=== PATIENT | male | born 1960 | race Caucasian/White ===

== ENCOUNTER 2017-05-23 07:00 | Day surgery (SDC) | payer OTHER ==
[~2017-05-23] VITALS: Ht 182.9 cm; Wt 129.7 kg
[~2017-05-23 07:00] MED LIST: AMARYL4 MG PO; DICLOFENAC SODI75 MG PO; GLUCOPHAGE1000 MG PO; HUMALOG100 UNIT/2 SUB-Q; JARDIANCE25 MG PO; LANTUS100 UNITS/ SUB-Q; LISINOPRIL40 MG PO; LOFIBRA160 MG PO; NORCO 10-325 T1 EACH PO; NORCO 5-325 TA1 EACH PO; SERTRALINE HCL50 MG PO; VICTOZA 2-0.6 MG/0.1 SUB-Q; VITAMIN B-50 C0.4 MG PO
--- NOTE | 2017-05-23 07:32 | NUR ---
PTS BLOOD SURGAR FOUND TO BE 329. PT STATES "i NORMALLY RUN THAT HIGH IN THE MORNING." ADVERTISEMENT DISTRIBUTOR INFORMED. PT DENIES DIZZINESS, OR OTHER S/S OF ELEVATED BLOOD SURGAR.
--- NOTE | 2017-05-23 07:39 | NUR ---
BAND SCROLL SAW OPERATOR STATES TO "LET HIS BLOOD SURGAR RIDE RIGHT NOW" NO ACTION NEEDED AT THIS TIME.
--- NOTE | 2017-05-23 07:39 | NUR ---
PT ARRIVED TO DAY SURGERY UNIT WITH WOUND ON RIGHT LOVING. WOUND APPEARS SCABED OVER AND DOES IS NOT DRAINING OR INFLAMED. PT REPORTS NO TROUBLE WITH HEALING. INFORMED.
--- NOTE | 2017-05-23 08:55 | NUR ---
PROMPT CARE RN AT BEDSIDE TO DO BLOCK. PROMPT CARE RN GAVE FENTANYL AND VERSED (SEE PROMPT CARE RN RECORD). PT PLACED ON 6L O2 BY MASK.
--- NOTE | 2017-05-23 09:06 | NUR ---
WORKFORCE DEVELOPMENT SPECIALIST FINISHED WITH PERNELL, AT BEDSIDE. BED RAILS UP, CALL LIGHT WITHIN REACH.
--- NOTE | 2017-05-23 10:25 | NUR ---
05/23/17 Jj5 Pamela Garcia 1017-PATIENT ARRIVED TO PACU ON 10L MASK 02 SAT 100% PATIENT NONAROUSABLE. LEFT ARM IN SLING 2 INCISION SITES CDI. ICE APPLIED. GLUCOSE 244 NO NEW ORDERS RECEIVED. 1023-PATIENT AROUSES TO VERBAL STIMULI DENIES PAIN OR NAUSEA. DROWSY WEANED TO 6L MASK O2 SAT 100% PATIENT ABLE TO WIGGLE FINGERS REPORTS A LITTLE NUMBNESS.
--- NOTE | 2017-05-23 11:16 | NUR ---
PT RETUREND FROM PACU. PAGED, HAS NOT RESPONDED TO PAGER YET. PT REPORTS 6/10 PAIN (SEE MAR FOR MEDICATION GIVEN). PT TOLERATING PO FLUIDS. PT DENIES NAUSEA. BED RAILS UP. CALL LIGHT WITHIN REACH.
[2017-05-23] MEDS ORDERED: NORCO 10-325 T1 EACH PO (11:37)
--- NOTE | 2017-05-23 12:08 | NUR ---
AT BEDSIDE. PT REPORTS IMPROVING PAIN NOW AT 09/03. PT MAINTAINING O2 ABOVE 92% ON ROOM AIR. BED RAILS UP. CALL LIGHT WITHIN REACH.
--- NOTE | 2017-05-23 13:19 | NUR ---
PT ALERT, ORIENTED AND SUPPORTED BY . THEY LIVE IN [place] AND CHOSE TO COME LAST NIGHT. HE SEEMS PREPARED, HAS HAD SAME SURGERY BEFORE. PLEASANT CONVERSATION, DECLINED PRAYER AT THIS TIME. WILL FOLLOW NEEDED
--- NOTE | 2017-05-24 10:11 | OR ---
[facility] [address] [place], [place] [address] Signed DATE OF OPERATION: 05/23/2017 SURGEON: Miriam Durán MD PREOPERATIVE DIAGNOSIS: Rotator cuff tear, left shoulder. POSTOPERATIVE DIAGNOSIS: Partial-thickness rotator cuff tear, supraspinatus, left shoulder. PROCEDURE: Shoulder arthroscopy with debridement of partial-thickness rotator cuff tear. ANESTHESIA: General. SPECIMENS AND COMPLICATIONS: There were no specimens or complications. TOURNIQUET: Tourniquet was not used. BLOOD LOSS: Minimal. WHAT WAS DONE: The patient was taken to the operating room. After anesthesia was induced and the airway supported, the patient was placed in a modified beach chair position, and prepped and draped in a routine sterile fashion. The bony topography about the shoulder was outlined with a skin marking pen and the arthroscope inserted into the shoulder through the standard posterior portal. Arthroscopy of the shoulder joint revealed an unremarkable glenoid and unremarkable humeral head. There was some fraying of the labrum, but the biceps tendon and the biceps anchor were intact. An anterior portal was created using a switching stick technique and a probe introduced. Again, there was some labral fraying particularly anteriorly and anterosuperiorly, but inspection on the underside of the rotator cuff did not reveal a full-thickness tear in the supraspinatus, the subscapularis, or the teres. We removed the scope from the shoulder joint and removed the probe. We then redirected the scope into the subacromial space, where there was a moderate bursitis. A VAPR was then introduced through an auxiliary lateral portal and a subacromial bursectomy performed. There was some new osteophyte formation on the Electronically Signed By: MIRIAM DURÁN MD 05/24/17 1011 PATIENT NAME: MORALES CISNEROS OPERATIVE REPORT DATE OF : 56 PHYSICIAN: MIRIAM DURÁN MD REPORT #: [id number] REPORT IS CONFIDENTIAL AND NOT TO BE RELEASED WITHOUT AUTHORIZATION [facility] [address] [place], [place] [address] Signed anteromedial aspect of the acromion and a bur was introduced to remove this. We then able to rotate the shoulder through a fairly full range of motion and indeed there was some fraying of the supraspinatus, but no full-thickness tearing. We then introduced the VAPR device and gently debrided of the loose fragments of the supraspinatus tear. Subacromial space was then copiously irrigated and drained. The portals were closed and a sterile dressing applied. The patient was awakened to recovery room where arrived in stable condition. Counts were correct and antibiotic protocols were followed. Miriam Durán MD WFB/MODL /[id number] Electronically Signed By: MIRIAM DURÁN MD 05/24/17 1011 PATIENT NAME: MORALES CISNEROS OPERATIVE REPORT DATE OF : 56 PHYSICIAN: MIRIAM DURÁN MD REPORT #: [id number] REPORT IS CONFIDENTIAL AND NOT TO BE RELEASED WITHOUT AUTHORIZATION
== END 2017-05-23 13:25 | disposition home or self-care (01) ==
LOC: OPS 07:00 → DS 07:00 → OPS 08:45
PROVIDERS: Orthopaedic Surgery
PROC: 0RBK4ZZ Excision of Left Shoulder Joint, Percutaneous Endoscopic Approach (ICD-10-PCS; principal; 2017-05-23 08:45)
DX: S46.012A Strain of muscle(s) and tendon(s) of the rotator cuff of left shoulder, initial encounter (principal); I10 Essential (primary) hypertension; E78.5 Hyperlipidemia, unspecified; Z88.8 Allergy status to other drugs, medicaments and biological substances; Z79.84 Long term (current) use of oral hypoglycemic drugs; X58.XXXA Exposure to other specified factors, initial encounter
CPT/HCPCS: 01630; 64416; 76942; J0330; J0690; J1100; J1885; J2250; J2270; J2405; J2704; J2765; J3010; J7120

== ENCOUNTER 2021-05-04 08:12 | Day surgery (SDC) | payer OTHER ==
[~2021-05-04] VITALS: Ht 182.9 cm; Wt 113.1 kg
[2021-05-04] MEDS ORDERED: LIPITOR40 MG PO (08:33)
[2021-05-04] MEDS ORDERED: OZEMPIC0.25 MG/0. SUB-Q (08:35)
--- NOTE | 2021-05-04 10:42 | NUR ---
05/04/21 1042 Thea Méndez 1037 PATIENT ARRIVES TO PACU RESTING WITH EYES CLOSED. AWAKE OFF/ON, BUT VERY DROWSY. REPOSITIONS SELF TO BACK. RESP EVEN AND UNLABORED, OXYGEN OFF, ROOM AIR SATS >95% DENIES NEEDS.
--- NOTE | 2021-05-05 07:59 | OR ---
[facility] [address] [place], [place] [address] Signed DATE OF OPERATION: 05/04/2021 SURGEON: Ruthie Jacques MD PREOPERATIVE DIAGNOSES: 1. Mother of colon cancer, age 46. 2. Father had colon cancer, age 72. 3. Personal history of colonic polyps, age 46 (2006). 4. Diverticulosis. 5. External hemorrhoids and skin tags. POSTOPERATIVE DIAGNOSES: 1. [id number] pandiverticulosis. 2. A 4 mm polyp at 82 cm next. 3. A 4 mm polyp at 10 cm. 4. A 5 mm polyp at 18 cm (rectum). 5. Minimal internal hemorrhoids with skin tag x1. PROCEDURE: Colonoscopy with hot biopsy. ESTIMATED BLOOD LOSS: None. INDICATIONS: Michael is a 60-year-old diabetic gentleman, asked to see me for a followup colonoscopy. We know his mother had at age 46 from her colon cancer. His dad diagnosed with colon cancer, age 72. Michael underwent his initial colonoscopy back in 2006 at the age of 46. He had hyperplastic and serrated adenomatous polyps removed at that time. He also had diverticulosis. He returned at age 49 in 2010 and had hyperplastic polyps removed. He had external hemorrhoids and skin tags as well. He then returned in 2015 at the age of 55 with pandiverticulosis along with external hemorrhoids and skin tags. On all three occasions, he has done well with Versed and fentanyl. He said he has no lower GI complaints currently. He returns for followup colonoscopy. In the office, I had given him a pamphlet on colonoscopy. He recalled the nature of the test. He understands risks including, but not limited to gas bloating, crampy abdominal pain, bleeding, perforation requiring surgery, and missed diagnosis. He had to he recall of the need for IV conscious sedation. He had expressed understanding and wished to proceed. Electronically Signed By: RUTHIE JACQUES MD 05/05/21 0759 PATIENT NAME: MICHAEL CISNEROS OPERATIVE REPORT DATE OF : 56 REPORT #: [id number] PHYSICIAN: RUTHIE JACQUES MD PCP: SYLVIA RAGSDALE NP REPORT IS CONFIDENTIAL AND NOT TO BE RELEASED WITHOUT AUTHORIZATION [facility] [address] [place] [id number] Signed DESCRIPTION OF PROCEDURE: Michael was taken into our endoscopy suite and placed in the left lateral decubitus position. He was given a total of 6 mg of Versed and 100 mcg of fentanyl to cover the case. A digital rectal exam was performed and he had minimal external hemorrhoids. His prostate seems to be indurated and swollen consistent with his age. The adult colonoscope was introduced advanced all around into the cecum under direct visualization of camera without difficulty. His prep was quite good. The scope was then slowly withdrawn. We could easily see the appendiceal orifice and the ileocecal valve. The above-mentioned polyps were easily removed with the help of hot biopsy forceps. We did notice some diverticula in the right colon as well as the left colon. Upon retroflexion of scope, he does have minimal internal hemorrhoid tissue, we saw just a single internal anal skin tag. After this, the gas was suctioned out. The colonoscope removed. Michael tolerated the procedure quite well. RECOMMENDATIONS: I will see Michael back in my office in 7 to 14 days to review his results. I suspect he will stay on the 5-year rotation. Ruthie Jacques MD ALB/MODL /[id number] cc: MD Sylvia Pérez, Nurse Practitioner Patient Chart Copies: RUTHIE JACQUES MD ~ Electronically Signed By: RUTHIE JACQUES MD 05/05/21 0759 PATIENT NAME: MICHAEL CISNEROS OPERATIVE REPORT DATE OF : 56 REPORT #: [id number] PHYSICIAN: RUTHIE JACQUES MD PCP: SYLVIA RAGSDALE NP REPORT IS CONFIDENTIAL AND NOT TO BE RELEASED WITHOUT AUTHORIZATION
--- NOTE | 2021-05-05 15:30 | PATH ---
[facility] [address] [place], [place] [address] Signed SPECIMEN(S): A COLON POLYP AT 82 CM SPECIMEN(S): B COLON POLYP AT 10 CM SPECIMEN(S): C COLON POLYP AT 18 CM SPECIMEN SOURCE: A. COLON POLYP AT 82 CM B. COLON POLYP AT 10 CM C. COLON POLYP AT 18 CM CLINICAL HISTORY: Colonoscopy. Family history of colon CA, history of polyp. Dx: Polyps, diverticulitis, internal hemorrhoids. MICROSCOPIC DESCRIPTION: Histologic sections of all submitted blocks are examined by light microscopy. These findings, together with the gross examination, support the pathologic diagnosis. FINAL PATHOLOGIC DIAGNOSIS: A. Colon, 82 cm, polypectomy: - Tissue was sent for cell preparation. - An addendum report will follow. B. Colon, 10 cm, polypectomy: - Hyperplastic polyp. - There is no evidence of dysplasia or malignancy. C. Colon, 18 cm, polypectomy: - Tubular adenoma. - There is no evidence of high-grade dysplasia or malignancy. TWK:cml:C2NR GROSS DESCRIPTION: Three specimens are received in three containers, labeled "KH." A. The specimen, labeled "KH, 1," and designated on the requisition "colon polyp at 82 cm," is received in formalin and consists of one arango soft tissue fragment that measures 0.1 cm in greatest dimension. The specimen is forwarded to [facility] to be spun down for cell block preparation. No block is submitted at this time. B. The specimen, labeled "KH, 2," and designated on the requisition "colon polyp at 10 cm," is received in formalin and consists of one arango soft tissue fragment that measures 0.3 cm in greatest dimension. The specimen is entirely submitted in cassette (B1). C. The specimen, labeled "KH, 3," and designated on the requisition "colon PATIENT NAME: MORALES CISNEROS PATHOLOGY DATE OF : 56 REPORT #: [id number] PHYSICIAN: KG PATHOLOGY PCP: MAYELA RAGSDALE NP REPORT IS CONFIDENTIAL AND NOT TO BE RELEASED WITHOUT AUTHORIZATION [facility] [address] [place], [place] [address] Signed polyp at 18 cm," is received in formalin and consists of one arango soft tissue fragment that measures 0.3 cm in greatest dimension. The specimen is entirely submitted in cassette (C1). AT (under the direct supervision of a pathologist) The Gross Description was prepared using a voice recognition system. The report was reviewed for accuracy; however, sound-alike word errors, addition and/or deletions may occur. If there is any question about this report, please contact Client Services. PERFORMING LABORATORY: The technical component was performed by [employer], [address] [place] [id number] (Steam Hoist Operator: Gloria Piper MD; CLIA# [id number]). Professional interpretation was performed by [facility], [address] [address] (CLIA# [id number]). Diagnostician: Thaddeus Vasquez MD Pathologist Electronically Signed 05/05/2021 Copies: ~ PATIENT NAME: MORALES CISNEROS PATHOLOGY DATE OF : 56 REPORT #: [id number] PHYSICIAN: KG PATHOLOGY PCP: MAYELA RAGSDALE NP REPORT IS CONFIDENTIAL AND NOT TO BE RELEASED WITHOUT AUTHORIZATION
== END 2021-05-04 11:10 | disposition home or self-care (01) ==
LOC: OPS 08:12 → DS 08:12 → DSVR 08:15 → OPS 08:15 → DS 09:45 → OPS 09:45
PROVIDERS: ATTEND Colon & Rectal Surgery
PROC: 0DBE8ZX Excision of Large Intestine, Via Natural or Artificial Opening Endoscopic, Diagnostic (ICD-10-PCS; principal; 2021-05-04 09:45)
DX: Z12.11 Encounter for screening for malignant neoplasm of colon (principal); D12.6 Benign neoplasm of colon, unspecified; Z86.010 Personal history of colon polyps; Z80.0 Family history of malignant neoplasm of digestive organs; K57.30 Diverticulosis of large intestine without perforation or abscess without bleeding; K64.8 Other hemorrhoids; K64.4 Residual hemorrhoidal skin tags; E78.5 Hyperlipidemia, unspecified; E11.9 Type 2 diabetes mellitus without complications; I10 Essential (primary) hypertension; G47.33 Obstructive sleep apnea (adult) (pediatric); M19.90 Unspecified osteoarthritis, unspecified site; Z98.1 Arthrodesis status; Z87.891 Personal history of nicotine dependence; Z88.8 Allergy status to other drugs, medicaments and biological substances; Z79.4 Long term (current) use of insulin
CPT/HCPCS: 99153; G0500; J2250; J3010; J7121

== ENCOUNTER 2021-07-17 05:45 | Day surgery (SDC) | payer OTHER ==
--- NOTE | 2021-07-11 11:49 | NUR ---
DOS: 07-17-[address] MCGRAW AND MAYELA RAGSDALE OFFICES. LEFT MESSAGE WITH STAFF REGARDING LOW K+3.2. EXPLAINED THAT IT NEEDS REPLACED BEFORE SURGERY.
[~2021-07-17] VITALS: Ht 182.9 cm; Wt 111.4 kg
[~2021-07-17 05:45] MED LIST changes: +FLOMAX0.4 MG PO; -GLUCOPHAGE1000 MG PO; +LIPITOR40 MG PO; +METFORMIN HCL1000 MG PO; +OMEGA 3 1,0001 EACH PO; +OZEMPIC0.25 MG/0. SUB-Q; +TOUJEO MAX300 UNIT/1 SUB-Q
--- NOTE | 2021-07-17 09:43 | NUR ---
07/17/21 0943 Sanna Agee 0926- PT ARRIVES TO PACU NONAROUSABLE TO NOXIOUS STIMULI. RESP EVEN AND UNLABORED. OXYGEN SAT HIGH 90'S ON 6L VIA MASK. PT'S FERNANDEZ DRAINING LIGHT PINK TINGED URINE WITH CBI INFUSING. 0931- PT HAS SOME RED TINGED GEL DRAINING OUT OF HIS PENIS. DR. MCGRAW AWARE. FERNANDEZ SECUREMENT DEVICE PLACED TO PT'S RIGHT LEG. 0934- BLOOD SUGAR 194. 0939- OXYGEN TITRATED OFF.
--- NOTE | 2021-07-17 10:05 | NUR ---
Pt arrives to MS floor from PACU. He is drowsy but oriented and awakens to voice, answers all questions, Tennie at bedside and engaged in care. Report received from Nataliia Melo RN. Pt on CPOX, 93% on RA, home CPAP brought in but not utilized. Urine light pink to cranberry in color with no clots noted. CBL irrigating and draining WNL. Pt reports no pain but does feel "pressure like he has to have a BM" will monitor. IVF infusing per order. IV WNL. Pt denies needs.
--- NOTE | 2021-07-17 10:50 | NUR ---
Full assessment and history complete. Pt resting in bed, denies pain or needs. at bedside. CBI irrigating WNL, urine light pink. No clots. Pt is oriented to room/unit and call light system and uses appropriately
--- NOTE | 2021-07-17 11:23 | NUR ---
PT ASLEEP IN BED WITH FAMILY AT BEDSIDE. NO FURTHER NEEDS AT THIS TIME.
[2021-07-17] MEDS ORDERED: OXYCODONE HCL5 MG PO (11:29)
[2021-07-17] MEDS ORDERED: LEVOFLOXACIN500 MG PO (11:32)
--- NOTE | 2021-07-17 11:35 | OR ---
[facility] [address] [place], [place] [address] Signed DATE OF OPERATION: 07/17/2021 SURGEON: Sho Mcgraw MD PREOPERATIVE DIAGNOSES: 1. Bilobar benign prostatic hyperplasia with lower urinary tract symptoms. 2. Elevated bladder neck. POSTOPERATIVE DIAGNOSES: 1. Bilobar benign prostatic hyperplasia with lower urinary tract symptoms. 2. Elevated bladder neck. NAMES OF PROCEDURES: 1. Diagnostic cystoscopy. 2. Urethral dilation using Juan Carlos sounds. 3. Transurethral resection of the prostate. ANESTHESIA: General. ESTIMATED BLOOD LOSS: 50 mL. COMPLICATIONS: None. SPECIMENS: Prostate chips sent to pathology for evaluation. DRAINS: A 22-Dominican three-way Tran catheter, connected to continuous bladder irrigation. INDICATIONS FOR PROCEDURE: Mr. Cisneros is a very pleasant 60-year-old gentleman, who is well-known to me with a history of BPH with lower urinary tract symptoms. After being on Flomax twice a day for a few years, he elected to undergo diagnostic cystoscopy for additional evaluation of his urinary symptoms. At that time, his urinary symptoms included weak force of stream and urinary hesitancy. He underwent a diagnostic cystoscopy, which revealed bilobar benign prostatic hyperplasia, along with an elevated bladder neck. After discussion of the risks and benefits of transurethral resection of the prostate, the patient elected Electronically Signed By: SHO MCGRAW MD 07/17/21 1135 PATIENT NAME: MORALES CISNEROS OPERATIVE REPORT DATE OF : 56 REPORT #: [id number] PHYSICIAN: SHO MCGRAW MD PCP: MAYELA RAGSDALE NP REPORT IS CONFIDENTIAL AND NOT TO BE RELEASED WITHOUT AUTHORIZATION [facility] [address] [place], [place] [address] Signed to undergo the aforementioned procedure. He presents today to undergo surgical intervention. OPERATIVE FINDINGS: 1. On cystoscopy, there was no evidence of any suspicious masses, lesions, or stones. Bilateral ureteral orifices are in their normal anatomic location. There is grade 2-3 bladder wall trabeculation noted. 2. Digital rectal examination was performed which revealed a 50 g gland that is soft, smooth and symmetric with no focal nodules. 3. The patient's urethral meatus was dilated using Richelle sounds from 18-Dominican to 30-Dominican without difficulty. 4. The patient's prostatic urethra was resected using a bipolar 24-Dominican loop, the entire bladder neck was resected, both anterior and posterior along with the lateral lobes of the prostate. The resection was performed down to the level of the verumontanum on all sides. At the end the procedure, bipolar button was used for additional resection and also to achieve and maintain adequate hemostasis. 5. At the end of the procedure, a 22-Dominican three-way Tran catheter was inserted into the patient's bladder and connected to continuous bladder irrigation. DESCRIPTION OF PROCEDURE: After informed consent was obtained, the patient was taken back to the operating room. He was transferred from the [facility] to the operating room table, where general anesthesia was induced. He was placed in the dorsal lithotomy position and his genitalia were prepped and draped in a standard sterile fashion. Using a 30-degree lens on a 22.5-Dominican introducer, rigid cystoscope was inserted through his urethra and into his bladder under direct visualization. Panendoscopic views of the bladder were then obtained. Please see the above findings. The cystoscope was then removed. The patient's urethral meatus was then dilated using Richelle sounds from 18-Dominican to 30-Dominican without incident. I then inserted a 26-Dominican continuous flow sheath using a visual obturator. The visual obturator was then switched out for a resectoscope with a 24-Dominican bipolar loop. I 1st resected the patient's elevated bladder neck both anteriorly and posteriorly. I then turned my attention to the left lateral lobe of the prostate, which was resected down to the level of the capsule. The right lateral lobe of the prostate was also dissected down to the level of the capsule. Prior to resection, I did evaluate the ureteral orifices and noted that they were not near the bladder neck. The resection was taken down to the level of just proximal to the verumontanum to avoid any iatrogenic injuries to the external sphincter. The patient's bladder was then irrigated of all prostate chips, which were then sent to the lab in a specimen cup. After continuing resection with the bipolar loop, this was ultimately switched out for a bipolar button and I cleaned out the newly-created prostatic fossa with the button. I also used the button to achieve additional hemostasis in the prostatic urethra. By the end the procedure, the patient had a very nice open and wide Electronically Signed By: SHO MCGRAW MD 07/17/21 1135 PATIENT NAME: MORALES CISNEROS OPERATIVE REPORT DATE OF : 56 REPORT #: [id number] PHYSICIAN: SHO MCGRAW MD PCP: MAYELA RAGSDALE NP REPORT IS CONFIDENTIAL AND NOT TO BE RELEASED WITHOUT AUTHORIZATION [address] [address] Signed channel and there was no active hemorrhage from any of the vessels in the area. I irrigated the remainder of the prostate chips from the patient's bladder and was then finished with the resection portion of the procedure. I inserted a Sensor wire through the indwelling sheath and into the patient's bladder. The 26-Dominican sheath was then removed fully intact, leaving the wire behind. Over the wire, I passed a 22-Dominican three-way Tran catheter into the patient's bladder and instilled 30 mL into the Tran balloon. Once in place, I manually irrigated the catheter to ensure placement. A digital rectal examination was then performed. Please see the above findings. The catheter was then connected to continuous bladder irrigation, and the procedure was terminated. The patient tolerated the procedure well without any complication. He will now be transferred to the postanesthesia care unit in stable condition. DISPOSITION: I discussed the details of today's procedure with the patient's and answered all of her questions. He will now be transferred to the medical-surgical floor where his continuous bladder irrigation will slowly be weaned to off, keeping the urine clear to light pink in color. His diabetic diet will be restarted and he will be given a sliding scale for management of his blood sugars. He will also be given pain control and antiemetics as needed. The plan is for him to be discharged to home tomorrow morning once he is off his CBI. He will see the Urology nurse in clinic this July 20 for a voiding trial. MD WES Vasquez/[place] /[id number] Copies: ~ Electronically Signed By: SHO MCGRAW MD 07/17/21 1135 PATIENT NAME: MORALES CISNEROS OPERATIVE REPORT DATE OF : 56 REPORT #: [id number] PHYSICIAN: SHO MCGRAW MD PCP: MAYELA RAGSDALE NP REPORT IS CONFIDENTIAL AND NOT TO BE RELEASED WITHOUT AUTHORIZATION
--- NOTE | 2021-07-17 13:39 | NUR ---
PATIENT IN BED RESTING AT THIS TIME. PATIENT COMPLAINS OF HEADHACHE BUT SAID HE DOES NOT WANT ANY MEDICATION FOR IT AT THIS TIME. VITALS CHARTED. RN NOTIFIED. CALL LIGHT IN REACH. NO FURTHER NEEDSA T THIST MICAELA,
[2021-07-17] MEDS ORDERED: OZEMPIC1 MG/0.71 SUB-Q (15:48)
--- NOTE | 2021-07-17 17:42 | NUR ---
SS Insulin provided per order. Pt states headache subsiding, not feeling nauseated currently after having several bouts of emesis approx 800ml total. IVF infusing WNL. Pt states no pain in bladder at this time. CBI irrigating WNL, light pink in color with no clots noted.
--- NOTE | 2021-07-17 19:00 | NUR ---
First dose IV toradol given and phenergan suppository, pt has no further needs
--- NOTE | 2021-07-17 19:20 | NUR ---
RECEIVED REPORT FROM DAY SHIFT RN. PATIENT IS RESTING IN BED WATCHING TV. NO NEEDS NOTED. CALL LIGHT IN REACH
--- NOTE | 2021-07-17 21:50 | NUR ---
PATIENT ASSEMENT COMPLETED. PATIENT REPORTS HEADACHE. PATIENT GIVEN PRN MEDICATION PER ORDER. PATIENTS BS CHECKED AND WNL. IV INFUSING PER ORDER. CBI TITRATED DOWN. PATIENT PROVIDED WITH FRESH ICE WATER AND JELLO. NO FURTHER NEEDS NOTED. CALL LIGHT IN REACH.
--- NOTE | 2021-07-18 00:05 | NUR ---
PATIENT IS RESTING IN BED WITH EYES CLOSED, CPOX READINGS ARE WNL. CBI CLAMPED NOW. CALL LIGHT IN REACH. IV INFUSING PER ORDER.
--- NOTE | 2021-07-18 02:51 | NUR ---
PATIENTS VITALS TAKEN AND RECORDED. INTAKE AND OUTPUT RECORDED. PATIENTS CBI REMAINS CLAMPED. PATIENTS IV INFUSING PER ORDER. PATIENT CONTINUES TO REPORT A HEADACHE, PRN MEDICATION GIVEN PER ORDER. FRESH ICE WATER PROVIDED. NO FURTHER NEEDS NOTED. CALL LIGHT IN REACH.
--- NOTE | 2021-07-18 04:38 | NUR ---
PATIENT IS RESTING IN BED WITH EYES CLOSED, CPOX READINGS ARE WNL. CALL LIGHT IN REACH.
--- NOTE | 2021-07-18 06:31 | NUR ---
PATIENTS VITALS TAKEN AND RECORDED. INTAKE AND OUTPUT RECORDED. PATIENT DENIES ANY NAUSEA. PATIENT REPORTS IMPROVEMENT OF HEADACHE. PATIENTS FERNANDEZ EMPTIED. PATIENT REMAINS CLAMPED. NO FURTHER NEEDS NOTED. CALL LIGHT IN REACH. IV INFUSING PER ORDER.
--- NOTE | 2021-07-18 07:45 | NUR ---
Report received from Laney HARMON. Pt resting in bed with eyes closed, On room air, CBI clamped at this time, varma draining light pink urine with no clots noted. No needs identified at this time. Call light in reach. Will continue plan of care.
[2021-07-18] MEDS ORDERED: OXYCODONE HCL5 MG PO (08:04)
[2021-07-18] MEDS ORDERED: LEVOFLOXACIN500 MG PO (08:06)
--- NOTE | 2021-07-18 08:40 | NUR ---
Scheduled medications administered, assessment complete. Pt sitting up in bed on room air. A+O, VSS. He states no pain or nausea, denies needs for PRN meds. IVF infusing WNL. ABX infusing. Urine output noted to be cranberry in color, no clots noted. Pt PO intake has improved. He verbalizes understanding about bedrest once at home, his to provide ride home when DC'd
--- NOTE | 2021-07-18 09:42 | NUR ---
MED REC COMPLETE
--- NOTE | 2021-07-18 09:45 | NUR ---
Dr Gallego updated on patient condition, gives verbal approval for patient to be discharged per order
--- NOTE | 2021-07-18 10:42 | NUR ---
Discharge teaching provided to patient who verbalizes understanding and has no questions. CBI clamped and removed, 3rd port to varma plugged. Pt educated on varma care and demonstrates knowledge. IV removed WNL. Pt dresses self with no difficulty. DC paperwork and f/u appointment provided. to provide ride home.
--- NOTE | 2021-07-20 18:00 | PATH ---
[facility] [address] [facility], [place] [address] Signed SPECIMEN(S): A PROSTATE CHIPS SPECIMEN SOURCE: [place]. PROSTATE CAPRICE CLINICAL HISTORY: Pre: Severe BPH. Post: TURP. FINAL PATHOLOGIC DIAGNOSIS: Prostate chips, transurethral resection: - Prostatic adenocarcinoma. - Predicted Iftikhar score: 3 + 3 = 6. - WHO Grade Group: 1. - Percentage of area involved by cancer: less than 5% (tumor involves approximately 21 of 200 chips). - Nodular prostatic hyperplasia. COMMENT: As part of [employer], this case was reviewed by another member of our pathology staff. A diagnostic alert was initiated by Dr. Wade on 07/20/21. NAL:cml:C1NR MICROSCOPIC EXAMINATION: Histologic sections of all submitted blocks are examined by light microscopy. These findings, together with the gross examination, support the pathologic diagnosis. TRICAP multiplex stains (with appropriately staining controls) were performed on applications sales representative sections (A1, A2, A4) and highlight some foci of prostatic adenocarcinoma, demonstrating epithelial p504s positivity and absence of basal cells with no p63 and high molecular weight cytokeratin staining in the malignant glands. GROSS DESCRIPTION: The specimen, labeled "JJ, prostate chips," is received in formalin and consists of irregular shaped, pink-arango, rubbery tissue fragments that aggregate measure 8.2 x 4.6 x 1.2 cm. The specimen weighs 14 grams. Approximately 85% of the specimen is submitted in eight cassettes (A1-A8). JS (under the direct supervision of a pathologist) The remaining of the tissue is entirely submitted in two additional cassettes PATIENT NAME: MORALES CISNEROS PATHOLOGY DATE OF : 56 REPORT #: [id number] PHYSICIAN: KG PATHOLOGY PCP: MAYELA RAGSDALE NP REPORT IS CONFIDENTIAL AND NOT TO BE RELEASED WITHOUT AUTHORIZATION [facility] [address] [place] [address] Signed (A9-A10) per Dr. Wade request. JS (under the direct supervision of a pathologist) The Gross Description was prepared using a voice recognition system. The report was reviewed for accuracy; however, sound-alike word errors, addition and/or deletions may occur. If there is any question about this report, please contact Client Services. ADDITIONAL NOTES: Immunohistochemical and/or in situ hybridization studies were performed on this case with the appropriate positive controls that react as expected. This test was developed and its performance characteristics determined by [facility]. It has not been cleared or approved by the U.S. Food and Drug Administration. The FDA has determined that such clearance or approval is not necessary. This test is used for clinical purposes. It should not be regarded as investigational or for research. [facility] is certified under the Clinical Laboratory Improvement Amendments of 1988 (CLIA) as qualified to perform high complexity clinical laboratory testing. This assay has not been validated for specimens that have been decalcified. The technical component was performed by [facility], [address] [place] [id number] (Digital Advisor: Gloria Piper MD; CLIA# [id number]). [facility], [address] [address] (CLIA# [id number]). PERFORMING LABORATORY: The technical component was performed by [facility], [address] [place] [id number] (Digital Advisor: Gloria Piper MD; CLIA# [id number]). Professional interpretation was performed by [facility], [address] [place], [place] [address] (CLIA# [id number]). Diagnostician: Varsha Wade MD Pathologist Electronically Signed 07/20/2021 Copies: PATIENT NAME: MORALES CISNEROSN PATHOLOGY DATE OF : 56 REPORT #: [id number] PHYSICIAN: KG PATHOLOGY PCP: MAYELA RAGSDALE NP REPORT IS CONFIDENTIAL AND NOT TO BE RELEASED WITHOUT AUTHORIZATION [facility] [address] [facility] [place], [place] [address] Signed ~ PATIENT NAME: MORALES CISNEROS ADRIANA PATHOLOGY DATE OF : 56 REPORT #: [id number] PHYSICIAN: KG CAGLE PCP: MAYELA RAGSDALE NP REPORT IS CONFIDENTIAL AND NOT TO BE RELEASED WITHOUT AUTHORIZATION
== END 2021-07-18 11:18 | disposition home or self-care (01) ==
LOC: DS 05:45 → MS 10:15 → DS 07-18 11:18
PROVIDERS: ATTEND Urology
PROC: 0T7D7ZZ Dilation of Urethra, Via Natural or Artificial Opening (ICD-10-PCS; 2021-07-17)
PROC: 0VT08ZZ Resection of Prostate, Via Natural or Artificial Opening Endoscopic (ICD-10-PCS; principal; 2021-07-17 07:30)
DX: C61 Malignant neoplasm of prostate (principal); R39.11 Hesitancy of micturition; R39.12 Poor urinary stream; E11.65 Type 2 diabetes mellitus with hyperglycemia; Z79.4 Long term (current) use of insulin
CPT/HCPCS: 00914; 80048; C1769; J0131; J0690; J0696; J1815; J1885; J2001; J2405; J2704; J3010; J7030; J7121

== ENCOUNTER 2025-03-12 14:03 | Emergency (ER) | payer MEDICARE ==
[~2025-03-12] VITALS: Ht 182.9 cm; Wt 108.5 kg
[~2025-03-12 14:03] MED LIST changes: +LEVOFLOXACIN500 MG PO; +OXYCODONE HCL5 MG PO; +OZEMPIC1 MG/0.71 SUB-Q
[2025-03-12 15:51] VITALS: BP 150/85
== END 2025-03-12 15:48 | disposition home or self-care (01) ==
LOC: ED 14:03
DX: S97.81XA Crushing injury of right foot, initial encounter (principal); S90.31XA Contusion of right foot, initial encounter; E11.9 Type 2 diabetes mellitus without complications; I10 Essential (primary) hypertension; E78.5 Hyperlipidemia, unspecified; Z87.891 Personal history of nicotine dependence; Z88.8 Allergy status to other drugs, medicaments and biological substances; Z79.84 Long term (current) use of oral hypoglycemic drugs; Z79.4 Long term (current) use of insulin; Z79.85 Long-term (current) use of injectable non-insulin antidiabetic drugs; Z79.899 Other long term (current) drug therapy; W20.8XXA Other cause of strike by thrown, projected or falling object, initial encounter
CPT/HCPCS: 73630; 99283